=== PATIENT | male | born 1995 | race Caucasian/White ===

== ENCOUNTER 2024-07-10 12:52 | Emergency (ER) | payer BC, SELFPAY ==
[2024-07-10 13:16] VITALS: BP 122/82; PULSE 90; RESP 18; TEMP 36.8; O2SAT 99; BMI 39.4
--- NOTE | 2024-07-10 13:29 | PD.EDNV ---
Nausea/Vomit./Diarrhea-RME/HPI General Chief complaint: Fever Stated complaint: FEVER, GIVENS, DIARRHEA, STARTED LAST NIGHT Time Seen by Provider: 07/10/24 13:14 Arrival date/time: 07/10/24 12:52 28-year-old male presents to the emergency department complains of nausea vomiting diarrhea which began last night. Limitations: no limitations Related Data Previous Rx's ?Medication ?Instructions ?Recorded ibuprofen 800 mg tablet 800 mg PO TID PRN pain #30 tabs 07/10/24 loperamide 2 mg capsule (Imodium 2 mg PO Q6H PRN loose stool #14 07/10/24 A-D) caps ondansetron 4 mg disintegrating 4 mg PO Q8H PRN nausea and 07/10/24 tablet vomiting #10 tabs Allergies Allergy/AdvReac Type Severity Reaction Status Date / Time chocolate flavor Allergy Severe Hives Verified 07/10/24 12:57 Review of Systems Review of Systems Systems Reviewed: All systems reviewed, normal except as documented Constitutional Constitutional: Reports system reviewed and no additional complaints, except as documented, Denies fever(s) and Denies headache(s) Eyes Eyes: Reports system reviewed and no additional complaints, except as documented and Denies blurry vision ENT Ears, Nose, Mouth, and Throat: Reports system reviewed and no additional complaints, except as documented, Denies headache(s), Denies nasal congestion and Denies nasal discharge Cardiovascular Cardiovascular: Reports system reviewed and no additional complaints, except as documented, Denies chest pain and Denies dyspnea Respiratory Respiratory: Reports system reviewed and no additional complaints, except as documented, Denies chest congestion, Denies cough and Denies dyspnea Gastrointestinal Gastrointestinal: Reports system reviewed and no additional complaints, except as documented, Denies abdominal pain, Reports loose stools and Reports vomiting Integumentary/Breasts Skin/Breast: Reports system reviewed and no additional complaints, except as documented and Denies rash Neurologic Neurologic: Reports system reviewed and no additional complaints, except as documented, Reports as per HPI and Denies headache(s) Past Medical History Past Medical History CARDIAC: Negative Congestive Heart Failure RESPIRATORY: Positive Asthma; Negative Chronic Obstructive Pulmonary Disease (COPD) GENITOURINARY: Negative Renal Disease ENDOCRINE: Negative Diabetes Mellitus Type 1 or Diabetes Mellitus Type 2 Social History SMOKING STATUS: Never smoker ED Exam General Limitations: Present no limitations General appearance: Present alert and in no apparent distress Head Head exam: Present atraumatic, normocephalic and normal inspection Eye Eye exam: Present normal appearance, PERRL and EOMI; Absent conjunctival injection ENT ENT exam: Present normal exam, normal oropharynx and mucous membranes moist Neck Neck exam: Present normal inspection, full ROM and trachea midline Chest Chest inspection: Present normal inspection and symmetric chest wall rise Respiratory Respiratory exam: Present normal lung sounds bilaterally Cardiovascular Cardiovascular exam: Present regular rate, normal rhythm and normal heart sounds Abdominal Exam Abdominal exam: Present soft and normal bowel sounds; Absent distention, tenderness, guarding, rebound, rigidity, Villafana's sign or tenderness at McBurney's Point Abdominal tenderness: Absent RUQ or RLQ Extremities Exam Extremities exam: Present normal inspection and full ROM Back Exam Back exam: Present normal inspection and full ROM Neurological Exam Neurological exam: Present alert, oriented X3 and CN II-XII intact Psychiatric Psychiatric exam: Present normal affect and normal mood Skin Skin exam: Present warm, dry, intact and normal color Course Quality Measures none Orders Category Date Time Status Bedside Influenza A&B Antigen Test NOW Care 07/10/24 13:18 Completed Loperamide [Imodium] Med 07/10/24 13:14 Discontinued 4 mg PO X1 ONE Ondansetron Odt [Zofran Odt] Med 07/10/24 13:14 Discontinued 4 mg PO X1 ONE Vital Signs Vital signs: Vital Signs Temperature 98.3 F 07/10/24 13:16 Pulse Rate 90 07/10/24 13:16 Respiratory Rate 18 07/10/24 13:16 Blood Pressure 122/82 07/10/24 13:16 Pulse Oximetry (%) 99 07/10/24 13:16 Oxygen Delivery Method Room Air 07/10/24 13:16 O2 saturation 99% room air within normal limits Nausea/Vomiting/Diarrhea MDM Narrative MDM Narrative:: 28-year-old male presents to the emergency department complains of nausea vomiting diarrhea which began last night. Patient checked for the flu which came back negative On exam symptoms are consistent with viral gastroenteritis patient reassured with course of nausea medication as well as diarrhea medication Patient discharged home in no distress to follow-up with primary care doctor in the next 24 to 48 hours and for any worsening symptoms to return to the ER immediately Patient data External records reviewed:: None Clinical information provided by:: patient Social determinants that could affect healthcare access:: none Patient has the following chronic illnesses:: None How is presenting disease/condition affected by chronic disease/condition?: no chronic disease Evaluation data The following diagnostics were reviewed and interpreted by me:: lab results Lab and/or radiology exams considered but not ordered:: Lab obtain Interpretation Summary: Reviewed by me Medications / Prescriptions Medications / Prescriptions considered but not ordered:: Given Medication administrations:: Medication Administration History Discontinued Medications Loperamide HCl (Loperamide 2 Mg Capsule) 4 mg PO X1 ONE Stop: 07/10/24 13:15 Last Admin: 07/10/24 13:31 Dose: 4 mg Documented By: Ondansetron HCl (Ondansetron Odt 4 Mg Tabrap) 4 mg PO X1 ONE; Protocol Stop: 07/10/24 13:15 Last Admin: 07/10/24 13:31 Dose: 4 mg Documented By: Given Consultations Consultation(s) initiated? (list below): No Diagnosis Nausea Differential Diagnosis: traveler's diarrhea, food poisoning and gastroenteritis Most likely diagnosis given after review of the tests above:: Gastritis Admission Indicated Admission indicated?: not indicated Admission Request Was there a request for admission?: No Disposition Plan Disposition Plan: Discharge Discharge Attestation Discharge Attestation: The patient and all family members were given an opportunity to ask questions and understood the discharge instructions. Discharge instructions specifically effects, indications for sooner follow up or return to the emergency department, and the expected course of current diagnosis. Patient condition: Stable Discharge Plan Plan Patient Disposition: HOME (Self Care) Disposition Comment: Stable Prescriptions/Referrals Prescriptions/Med Rec: New loperamide [Imodium A-D] 2 mg capsule 2 mg PO Q6H PRN (Reason: loose stool) Qty: 14 0RF ibuprofen 800 mg tablet 800 mg PO TID PRN (Reason: pain) Qty: 30 0RF ondansetron 4 mg tablet,disintegrating 4 mg PO Q8H PRN (Reason: nausea and vomiting) Qty: 10 0RF Problem List Clinical Impression: Nausea vomiting and diarrhea Patient/Caregiver Discharge Instructions Education Materials: Treating Diarrhea Additional Instructions: Please follow up with your primary care doctor in the next 24-48hrs for any worsening symptoms return here immediately Print Language: Kittitian Stand Alone Forms: Hailee Award Info., Work/School Release, Patient Portal Info Letter PA/MOTORCOACH DRIVER Supervising Physician PA/MOTORCOACH DRIVER Supervising Physician: Dr. [email or web address]
[2024-07-10] MEDS: LOPERAMIDE 2 MG CAPSULE 4 MG PO (13:31)
[2024-07-10] MEDS: ONDANSETRON ODT 4 MG TABRAP PO (13:31)
== END 2024-07-10 13:40 | disposition home or self-care (01) ==
LOC: SERX 13:41
PROVIDERS: Emergency Provider Family Medicine
DX: R11.2 Nausea with vomiting, unspecified (principal); R19.7 Diarrhea, unspecified
CPT/HCPCS: 87400; 99283; Q0162; A9270